=== PATIENT | female | born 1970 | race Two or more races ===

== ENCOUNTER 2016-04-13 12:25 | Emergency (ER) | payer OTHER ==
[2016-04-13 13:09] VITALS: TEMP 97.8; BMI 31.1
[2016-04-13 13:41] LABS: AUTOMATED EOSINOPHIL 1.1 % (0-5); AUTOMATED LYMPH 23.5 % (17-44); AUTOMATED MONOCYTE 4.8 % (3-10); AUTOMATED NEUTROPHIL 69.6 % (45-76); MPV 8.3 fL (7.4-10.4)
[2016-04-13 13:56] LABS: BLOOD UREA NITROGEN 10 MG/DL (7-17); CALCIUM 9.6 MG/DL (8.4-10.2); CALCULATED OSMOLALITY 266 MOs/Kg (270-290); CHLORIDE 102 mEq/L (98-107); GLUCOSE 87 MG/DL (70-99); SODIUM LEVEL 139 mEq/L (137-146); TOTAL PROTEIN 8.7 G/DL (6.3-8.2)
[2016-04-13 14:12] LABS: QUANTITATIVE SERUM HCG 4603.7 mIU/mL (<5)
[2016-04-13 15:57] VITALS: BP 150/69; PULSE 92
--- NOTE | 2016-04-13 16:52 | EDPRACDOC ---
- General Information Chief Complaint: Vaginal Bleeding Stated Complaint: PREG VAGINAL BLEEDING Time Seen by Provider: 04/13/16 16:34 Information Source: Patient Mode of Arrival: Car - History of Present Illness Onset: 22 days HPI: PT STATES VAG BLEEDING X 22 DAYS, LMP WAS IN "JANUARY", HAS SEEN PCP, WAS TOLD SHE WAS , HAD OP US LAST WEEK. STATES SHE HAS HAD INCREASED CRAMPING TODAY WITH "BLOOD CLOTS" WHEN SHE WIPES AFTER URINATION. PT DENIES FEVER OR CHILLS, NO N/V/D. Description: Reports: Spontaneous Location: Reports: Internal Vagina Relevant History: Reports: Currently : 3 Para: 2 Total Number of Abortions: 0 Control Method: Reports: None Blood Type: A+ Pain Severity: Mild Vaginal Bleeding Description: Reports: Dark, Clotted # Tampons Used in the Last 12/24 Hours: 0 # Pads Used in the Last 12/24 Hours: 1 Associated Signs & Symptoms: Reports: Abdominal Pain, Vaginal Bleeding. Denies : Fever, Dyspareunia, Dysuria, Frequency, Urgency, Hematuria, Faintness, Nausea , Vomiting, Vaginal Discharge, Breast Tenderness, Chills, Vaginal Pain, Burning , Itching ED Past Medical History - History Reviewed Yes Nurses notes reviewed and agree except as marked No Past Medical History: Yes Patient has no past medical history - Patient Medical History Surgical History: Reports: Cholecystectomy - Social Medical History Smoking Status: Never smoker ETOH: None Substance Abuse: None EDM Review of Systems - Review of Systems Constitutional: negative: Chills, Fever Eyes: negative: Blurred Vision, Double Vision Ears: negative: Drainage Throat: negative: Pain Nose: negative: Congestion, Discharge Respiratory: negative: Cough, Shortness of Breath, Wheezing Cardiovascular: negative: Chest Pain, Palpitations Gastrointestinal: Pain. negative: Diarrhea, Nausea, Vomiting Genitourinary: , Vaginal Bleeding. negative: Dysuria, Frequency Neurological: negative: Dizziness, Headache, Numbness, Weakness Musculoskeletal: No Symptoms Reported Integumentary: No Symptoms Reported - Physical Exam Constitutional: Alert (Awake), No apparent distress Oriented to: Time, Person, Place Last recorded Vital Signs: Last Vital Signs Temp 97.8 F 04/13/16 13:05 Pulse 92 04/13/16 15:57 Resp 18 04/13/16 15:57 BP 150/69 04/13/16 15:57 Pulse Ox 98 04/13/16 15:57 Oxygen Pulse Oxygen Saturation 98 O2 Device Room Air Oxygen Flow Rate Fraction of Inspired Oxygen ( FIO2) - HEENT Head: Normal ( normocephalic) Eye Exam: Normal (PERRL, EOMI, Sclera white) Oropharynx: Normal (Pharynx:Moist without exudate,Gums-no swelling) Tympanic Membrane: Normal ENT EAC: Normal TMJ: Normal Nose: No Symptoms Reported (septum midline) Neck: Normal (FROM, trachea at midline) - Respiratory/Cardiovascular Respiratory: Normal - CTA (BBS clear to auscultation without adventitious sounds ) Cardiovascular: Normal (RRR without murmur, gallop or rub) - GI Auscultation: Normal (NABS) Palpation: Normal (Soft,No rebound or guarding, non distended) Tenderness: Non tender Narayan's Sign: Negative - Integumentary Skin: Normal, Warm, Dry Lymphatics: Normal (no adenopathy) - Neurologic Memory Impaired: Normal Motor Function: Normal (Normal tone, Pulses 2+ No cyanosis or edema, FROM) Cranial Nerve: Normal (CN II-X11 intact sensation, strength 5/5) Cerebellar: Normal Mood Description: Normal Perception: Normal - Differential Diagnosis Inevitable , Threatened - Results 04/13/16 13:15 04/13/16 13:15 WBC 10.4 xk/uL (3.8-10.8) 04/13/16 13:15 RBC 4.93 xM/uL (4.20-5.40) 04/13/16 13:15 Hgb 12.5 g/dL (12.0-16.0) 04/13/16 13:15 Hct 37.8 % (36-47) 04/13/16 13:15 MCV 77 fL (81-99) L 04/13/16 13:15 MCH 25.4 pg (27-32) L 04/13/16 13:15 MCHC 33.1 g/dl (33-36) 04/13/16 13:15 RDW 15.3 % (11.5-14.5) H 04/13/16 13:15 Plt Count 306 xk/uL (130-400) 04/13/16 13:15 MPV 8.3 fL (7.4-10.4) 04/13/16 13:15 Neut % (Auto) 69.6 % (45-76) 04/13/16 13:15 Lymph % (Auto) 23.5 % (17-44) 04/13/16 13:15 Davidson % (Auto) 4.8 % (3-10) 04/13/16 13:15 Eos % (Auto) 1.1 % (0-5) 04/13/16 13:15 Baso % (Auto) 1.0 % (0-2) 04/13/16 13:15 Absolute Neuts (auto) 7.18 xk/uL (1.7-8.2) 04/13/16 13:15 Absolute Lymphs (auto) 2.39 xk/uL (0.65-4.75) 04/13/16 13:15 Sodium 139 mEq/L (137-146) 04/13/16 13:15 Potassium 3.5 mEq/L (3.5-5.1) 04/13/16 13:15 Chloride 102 mEq/L (98-107) 04/13/16 13:15 Carbon Dioxide 23 mMOL/L (22-33) 04/13/16 13:15 Anion Gap 18 mEq/L (8-16) H 04/13/16 13:15 BUN 10 MG/DL (7-17) 04/13/16 13:15 Creatinine 0.60 MG/DL (0.52-1.04) 04/13/16 13:15 Estimated GFR (MDRD) > 60 mL/min (>=60) 04/13/16 13:15 Glucose 87 MG/DL (70-99) 04/13/16 13:15 Calculated Osmolality 266 MOs/Kg (270-290) L 04/13/16 13:15 Calcium 9.6 MG/DL (8.4-10.2) 04/13/16 13:15 Total Bilirubin 0.4 MG/DL (0.2-1.3) 04/13/16 13:15 AST 27 IU/L (14-36) 04/13/16 13:15 ALT 24 IU/L (9-52) 04/13/16 13:15 Alkaline Phosphatase 114 IU/L (38-126) 04/13/16 13:15 Total Protein 8.7 G/DL (6.3-8.2) H 04/13/16 13:15 Albumin 4.5 G/DL (3.5-5.0) 04/13/16 13:15 Beta HCG, Quant 4603.7 mIU/mL (<5) 04/13/16 13:15 Blood Type A POSITIVE 04/13/16 13:15 Lab Results 04/13/16 04/13/16 04/13/16 13:15 13:15 13:15 WBC 10.4 RBC 4.93 Hgb 12.5 Hct 37.8 MCV 77 L MCH 25.4 L MCHC 33.1 RDW 15.3 H Plt Count 306 MPV 8.3 Neut % (Auto) 69.6 Lymph % (Auto) 23.5 Davidson % (Auto) 4.8 Eos % (Auto) 1.1 Baso % (Auto) 1.0 Absolute Neuts (auto) 7.18 Absolute Lymphs (auto) 2.39 Sodium 139 Potassium 3.5 Chloride 102 Carbon Dioxide 23 Anion Gap 18 H BUN 10 Creatinine 0.60 Estimated GFR (MDRD) > 60 Glucose 87 Calculated Osmolality 266 L Calcium 9.6 Total Bilirubin 0.4 AST 27 ALT 24 Alkaline Phosphatase 114 Total Protein 8.7 H Albumin 4.5 Beta HCG, Quant 4603.7 Blood Type A POSITIVE - Additional Information OLD CHART REVIEWED, US ON 04/11/16 SHOWED IUP, NO CARDIAC ACTIVITY, 5 W 6 D, SMALL SUBCHORIONIC HEMORRHAGE QUANT LOWER TODAY, MOST LIKELY OUTCOME IS MISCARRIAGE. Decision Time to Discharge: 16:54 - Departure Disposition: Home Condition: Stable Final Diagnosis: Threatened Instructions: Threatened Miscarriage (ED) Education/Counseling Given To: Patient Education/Counseling Given Regarding: Diagnosis, Treatment, Prognosis, Follow Up Referrals: Radha King DO [Staff Physician] - One Week Forms: Excuse Note Additional Instructions: BED/VAGINAL REST, NO PROLONGED STANDING, HEAVY LIFTING, RETURN TO THE ED FOR ANY WORSENING SYMPTOMS OR CONCERNS. Return to the Emergency Deparment for increasing or different abdominal pain, vaginal bleeding that soaks two pads per hour for two hours, feeling like you might pass out, or any concerns.
== END 2016-04-13 17:13 | disposition home or self-care (01) ==
LOC: ED 12:25 → EDMC 17:13
DX: O20.0 Threatened abortion (principal); Z3A.01 Less than 8 weeks gestation of pregnancy
CPT/HCPCS: 36415; 80053; 84702; 85025; 86900; 86901; 99283

== ENCOUNTER → 2016-04-21 | Day surgery (SDC) | payer OTHER ==
[2016-04-13 13:09] VITALS: BMI 31.1
[~2016-04-21] MED LIST: CEFAZOLIN 1 GM VIAL ONE; DEXAMETHASONE 4 MG/ML VIAL IV ONE; FENTANYL 100 MCG/2 ML VIAL IV ONE; FENTANYL 100 MCG/2 ML VIAL IV PRN; HYDROmorphone 1 MG INJECTION IV PRN; KETOROLAC TROMETH 30 MG/ML VIAL IM ONE; LABETALOL 20 MG/4 ML SYRINGE IV PRN; LIDOCAINE 100 MG PFS IV ONE; LR 1,000 ML IV ONE; MEPERIDINE 25 MG/ML TUBEX IV PRN; METOCLOPRAMIDE 10 MG/2 ML VIAL IV ONE; MIDAZOLAM 2 MG/2 ML VIAL IV ONE; ONDANSETRON HCL 4 MG ODT TAB PO PRN; ONDANSETRON HCL 4 MG/2 ML VIAL IV ONE; ONDANSETRON HCL 4 MG/2 ML VIAL IV PRN; PROPOFOL 200 MG/20 ML VIAL IV ONE; SUCCINYLCHOLINE 20 MG/1 ML INJ 10 ML MDV IV ONE; hydrALAZINE 20 MG/ML VIAL IV PRN
--- NOTE | 2016-04-21 10:45 | HIM.ANES ---
Anesthesia Evaluation & Plan - Focused Review of Systems Smoking Status: Never smoker Surgical History: Yes: Cholecystectomy - Focused Physical Exam NPO since: 729 bite of apple and small volume of clear liquid Mallampati: Class II Thyromental Distance: Greater than 3 Neck: Full Range of Motion Dental: Normal - no significant findings Cardiovascular/Chest: Normal Respiratory: Lungs clear Other: Problem List Problem Status Onset Threatened Acute Height and Weight Patient's height 5 ft 2 in Patient's weight 77.337 kg BMI 31.1 - Anesthetic Plan Anesthesia Type: General (RSI) ASA Class: 2 -: I have examined this patient and reviewed the medical record. The patient has been assessed prior to anesthesia. Risks and benefits of anesthesia and anesthetic technique options have been discussed and all questions answered. The patient accepts the risk and desires me to proceed with the planned anesthetic.
--- NOTE | 2016-04-21 12:07 | HIMOPRPT ---
DATE OF PROCEDURE: DATE OF PROCEDURE: 04/21/16 PREOPERATIVE DIAGNOSIS: Missed at 7 weeks POSTOPERATIVE DIAGNOSIS: Missed at 7 weeks PROCEDURE: Dilation and evacuation with sharp curettage. SURGEON: Elodia Henderson MD. ANESTHESIA: General. COMPLICATIONS: None. ESTIMATED BLOOD LOSS: 100 mL. FINDINGS: The uterine size consistent with [7]-week size uterus with a large amount of products of conception. PROCEDURE IN DETAIL: The patient was taken to the operating room, where anesthesia was found to be adequate. She was prepped and draped in the sterile fashion, placed in [facility] cane stirrups. Her bladder was emptied with in and out catheter. A weighted speculum was inserted into the vagina. The cervix was grasped with an Allis clamp and the uterus sounded to 8 cm. At this time, the cervix was dilated in symmetrical fashion using Coley dilators. A 9 mm suction curette was introduced and uterine contents evacuated. A sharp curettage was performed on all surfaces, and the suction curette reintroduced again with removal of products. This was continued until hemostasis was excellent and no products were noted. At this time, hemostasis was good. The tenaculum was removed. The weighted speculum was removed. The sponge, laps and needle counts correct x2. The patient tolerated well.
[2016-04-21 12:45] VITALS: TEMP 97
[2016-04-21 13:09] VITALS: PULSE 89
--- NOTE | 2016-04-21 13:57 | SC.ANESPOS ---
Post-Anesthesia Note LOC: Fully Awake Post-Anesthesia Assessment: Awake, Returned to Baseline, Hemodynamically Stable , Pain Control Adequate Phase I & II Recovery Complete: Yes Apparent Anesthesia Complication: No : N PACU Discharge Time: 12:48 - Vital Signs Blood Pressure: 107/59 Pulse: 89 Resp Rate: 16 O2 Sat: 100 Temp: 97 F - Comments Anesthesia Discharge Time Report Time 12:48
[2016-04-21 13:58] VITALS: BP 118/69
== END ==
LOC: SDC 10:19
PROVIDERS: ATTEND Obstetrics & Gynecology
PROC: 10D17ZZ Extraction of Products of Conception, Retained, Via Natural or Artificial Opening (ICD-10-PCS; principal; 2016-04-21 12:15)
DX: O02.1 Missed abortion (principal); K58.9 Irritable bowel syndrome, unspecified; F41.9 Anxiety disorder, unspecified; F32.9 Major depressive disorder, single episode, unspecified; E66.9 Obesity, unspecified; Z68.33 Body mass index [BMI] 33.0-33.9, adult
CPT/HCPCS: 59820; J0330; J0690; J1100; J1885; J2001; J2250; J2405; J2765; J3010; J3490